=== PATIENT | female | born 1975 | race Caucasian/White ===

== ENCOUNTER 2017-05-31 05:57 | Emergency (ER) | payer BC ==
[~2017-05-31] VITALS: Ht 172.7 cm; Wt 111.1 kg
[~2017-05-31 05:57] MED LIST: GABAPENTIN600 MG PO; IBUPROFEN400 MG PO; IBUPROFEN600 MG PO; LISINOPRIL5 MG PO; METFORMIN HCL1000 MG PO; MULTI VITAMIN1 EACH PO; NORCO 5-325 TA1 EACH PO; SYMBICORT 16010.2 GM INH; TOPROL XL50 MG PO; VENTOLIN HFA18 GM INH; VITAMIN D5000 UNIT PO
[2017-05-31] MEDS ORDERED: KETOROLAC TROME10 MG PO (07:28)
== END 2017-05-31 07:58 | disposition home or self-care (01) ==
LOC: ED 05:57
DX: S93.402A Sprain of unspecified ligament of left ankle, initial encounter (principal); I10 Essential (primary) hypertension; E11.40 Type 2 diabetes mellitus with diabetic neuropathy, unspecified; F17.200 Nicotine dependence, unspecified, uncomplicated; Z88.5 Allergy status to narcotic agent; Z79.899 Other long term (current) drug therapy; Z79.84 Long term (current) use of oral hypoglycemic drugs; X58.XXXA Exposure to other specified factors, initial encounter
CPT/HCPCS: 73610; 99283

== ENCOUNTER 2017-06-07 07:42 | Emergency (ER) | payer OTHER, BC ==
[~2017-06-07] VITALS: Ht 172.7 cm; Wt 99.8 kg
[~2017-06-07 07:42] MED LIST changes: +KETOROLAC TROME10 MG PO
== END 2017-06-07 09:13 | disposition home or self-care (01) ==
LOC: ED 07:42
DX: S80.12XA Contusion of left lower leg, initial encounter (principal); I10 Essential (primary) hypertension; E11.40 Type 2 diabetes mellitus with diabetic neuropathy, unspecified; F17.200 Nicotine dependence, unspecified, uncomplicated; Z88.5 Allergy status to narcotic agent; Z79.899 Other long term (current) drug therapy; Z79.84 Long term (current) use of oral hypoglycemic drugs; X58.XXXA Exposure to other specified factors, initial encounter; Y99.0 Civilian activity done for income or pay
CPT/HCPCS: 73590; 99283

== ENCOUNTER 2022-03-30 08:29 | Day surgery (SDC) | payer BC ==
[~2022-03-30] VITALS: Ht 172.7 cm; Wt 101.8 kg
[~2022-03-30 08:29] MED LIST changes: +ALEVE220 M1 PO; +ALLERGY RELIEF10 MG PO; +ATORVASTATIN CA40 MG PO; +BENADRYL25 MG PO; +BUPROPION XL150 MG PO; +FISH OIL OMEGA1 EAC2 PO; +GLIPIZIDE XL10 MG PO; +PIOGLITAZONE HC30 MG PO; +SINGULAIR10 MG PO; +TRAZODONE HCL50 MG PO; +TRIDERM28.4 GM TOP; +VITAMIN D325 MC4 PO
[2022-03-30] MEDS ORDERED: ACETAMINOPHEN500 MG PO (08:52)
[2022-03-30] MEDS ORDERED: IBUPROFEN200 MG PO (08:53)
--- NOTE | 2022-03-31 08:26 | OR ---
[facility] [address], [place] [address] Signed DATE OF OPERATION: 03/30/2022 SURGEON: Lenore Kraft MD PREOPERATIVE DIAGNOSES: 1. Intermittent diarrhea. 2. External hemorrhoids. POSTOPERATIVE DIAGNOSES: 1. Moderate circumferential external hemorrhoids. 2. Minimal sigmoid diverticulosis.. PROCEDURE: Colonoscopy with random cold biopsies of the colon. ESTIMATED BLOOD LOSS: None. INDICATIONS: Meena is a 46-year-old obese diabetic female, asked to see me for her initial colonoscopy. She has been working closely with her internal medicine physician. She has had intermittent diarrhea, which may or may not be related to stress. Her stool studies have been negative. Her primary care provider asked that she see me for a colonoscopy with biopsies. She describes external hemorrhoids as well. She told me that helped her with a colonoscopy a few weeks prior to her office visit. Consequently, she is familiar with this process. She is also describing right upper quadrant abdominal pain. She had a negative gallbladder ultrasound. It is possible she might need a HIDA scan at some point with ejection fraction. She told me there is no family history of colon cancer or polyps or inflammatory bowel disease. In the office, I had given her a pamphlet on colonoscopy as I did her . She recalls the nature of the test. There is risk including, but not limited to gas bloating, crampy abdominal pain, bleeding, perforation requiring surgery, and missed diagnosis. We had reviewed the written instructions for a bowel prep line by line. It is the same prep her took. She is going to hold her diabetic medications in the morning until after the test. She will hold the aspirin and naproxen 3 days prior to the procedure. A little Tylenol will be fine. She recalls the need for IV conscious sedation. She has expressed understanding and would like to proceed. PROCEDURE NOTE: Meena was taken into our endoscopy suite and placed in the left lateral decubitus Electronically Signed By: LENORE KRAFT MD 03/31/22 0826 PATIENT NAME: MEENA NAYLOR OPERATIVE REPORT DATE OF : 73 REPORT #: [id number] PHYSICIAN: LENORE KRAFT MD PCP: DAYSI ESTRADA MD REPORT IS CONFIDENTIAL AND NOT TO BE RELEASED WITHOUT AUTHORIZATION [facility] [address], [place] [address] Signed position. She was given 8 mg of Versed and 150 mcg of fentanyl to cover the case. A digital rectal exam was performed and indeed she has moderate circumferential external hemorrhoids. She had good sphincter tone. There were no masses. The adult colonoscope was introduced and advanced all the way around into the cecum under direct visualization of the camera without difficulty. Her prep was quite excellent. It took a little extra sedation to get to the cecum. We could easily see the appendiceal orifice and ileocecal valve. The scope was then slowly withdrawn. She had just a few diverticula in the sigmoid colon. They are shallow and few in number, and scattered about. We took several random biopsies throughout the colon for pathologic review. We did not see any evidence of inflammation. We did not intubate the terminal ileum. Once in the rectum, the scope had been retroflexed and really not much in the way of any internal hemorrhoid columns. After this, the gas was suctioned out and the colonoscope removed. Meena tolerated the procedure quite well. RECOMMENDATIONS: I will see Meena back in my office in 7 to 14 days to review her results. Lenore Kraft MD ALB/MODL /[id number] cc: MD Lenore Sampson MD Copies: DAYSI ESTRADA MD, ANDREW L MD ~ Electronically Signed By: LENORE KRAFT MD 03/31/22 0826 PATIENT NAME: MEENA NAYLOR YESSY OPERATIVE REPORT DATE OF : 73 REPORT #: [id number] PHYSICIAN: LENORE KRAFT MD PCP: DAYSI ESTRADA MD REPORT IS CONFIDENTIAL AND NOT TO BE RELEASED WITHOUT AUTHORIZATION
== END 2022-03-30 11:28 | disposition home or self-care (01) ==
LOC: DS 08:29
PROVIDERS: ATTEND Colon & Rectal Surgery
PROC: 0DBE8ZX Excision of Large Intestine, Via Natural or Artificial Opening Endoscopic, Diagnostic (ICD-10-PCS; principal; 2022-03-30 09:45)
DX: R19.7 Diarrhea, unspecified (principal); E66.9 Obesity, unspecified; E11.9 Type 2 diabetes mellitus without complications; I10 Essential (primary) hypertension; E78.00 Pure hypercholesterolemia, unspecified; F17.200 Nicotine dependence, unspecified, uncomplicated; K64.4 Residual hemorrhoidal skin tags; K57.30 Diverticulosis of large intestine without perforation or abscess without bleeding; Z79.84 Long term (current) use of oral hypoglycemic drugs; Z68.34 Body mass index [BMI] 34.0-34.9, adult
CPT/HCPCS: 99153; G0500; J2250; J3010; J7121

== ENCOUNTER 2023-04-03 13:23 | Emergency (ER) | payer BC, OTHER ==
[~2023-04-03] VITALS: Ht 172.7 cm; Wt 102.9 kg
[~2023-04-03 13:23] MED LIST changes: +ACETAMINOPHEN500 MG PO; +IBUPROFEN200 MG PO
[2023-04-03] MEDS ORDERED: ERYTHROMYCIN1 GM OP (16:57)
[2023-04-03 17:09] VITALS: BP 138/94
== END 2023-04-03 17:10 | disposition home or self-care (01) ==
LOC: ED 13:23
DX: H01.9 Unspecified inflammation of eyelid (principal); I10 Essential (primary) hypertension; E11.40 Type 2 diabetes mellitus with diabetic neuropathy, unspecified; F17.200 Nicotine dependence, unspecified, uncomplicated; Z88.5 Allergy status to narcotic agent; Z88.8 Allergy status to other drugs, medicaments and biological substances; Z79.84 Long term (current) use of oral hypoglycemic drugs; Z79.899 Other long term (current) drug therapy
CPT/HCPCS: 99283

== ENCOUNTER 2024-06-16 10:27 | Emergency (ER) | payer OTHER ==
[~2024-06-16] VITALS: Ht 172.7 cm; Wt 87.2 kg
[~2024-06-16 10:27] MED LIST changes: +ERYTHROMYCIN1 GM OP
[2024-06-16] MEDS ORDERED: HYDROCODONE/ACETA 5/325 TAB PO ONE (11:30)
[2024-06-16 11:42] VITALS: BP 150/90
== END 2024-06-16 11:42 | disposition home or self-care (01) ==
LOC: ED 10:27
DX: S70.02XA Contusion of left hip, initial encounter (principal); I10 Essential (primary) hypertension; E11.9 Type 2 diabetes mellitus without complications; F17.200 Nicotine dependence, unspecified, uncomplicated; W17.89XA Other fall from one level to another, initial encounter; Z88.5 Allergy status to narcotic agent; Z88.8 Allergy status to other drugs, medicaments and biological substances; Z79.84 Long term (current) use of oral hypoglycemic drugs; Z79.899 Other long term (current) drug therapy
CPT/HCPCS: 72100; 73502; 99283